=== PATIENT | male | born 1975 | race Hispanic/Latino ===

== ENCOUNTER 2018-09-27 08:16 | Emergency (ER) | payer SELFPAY ==
[~2018-09-27] VITALS: Ht 165.1 cm; Wt 70.0 kg
[~2018-09-27 08:16] MED LIST: CEPHALEXIN500 MG PO; LIBRIUM25 M1 PO; NO HOME MEDS; OCEAN NASAL0.65 %; TRIAMCINOLON0.11 EX; ULTRAM50 M1 PO; ZOFRAN ODT4 MG SL
[2018-09-27] MEDS ORDERED: TORADOL PO (08:40)
[2018-09-27] MEDS ORDERED: AUGMENTIN500TAB PO (08:40)
[2018-09-27 09:38] VITALS: BP 124/65
== END 2018-09-27 09:51 | disposition home or self-care (01) | DRG 605 ==
LOC: ED 08:16
DX: S51.851A Open bite of right forearm, initial encounter (principal); W54.0XXA Bitten by dog, initial encounter; Y92.009 Unspecified place in unspecified non-institutional (private) residence as the place of occurrence of the external cause

== ENCOUNTER 2020-02-09 09:12 | Emergency (ER) | payer SELFPAY ==
[~2020-02-09] VITALS: Ht 165.1 cm; Wt 56.8 kg
[~2020-02-09 09:12] MED LIST changes: +AUGMENTIN500TAB PO; +TORADOL PO
[2020-02-09 10:10] VITALS: BP 122/79
== END 2020-02-09 10:10 | disposition home or self-care (01) | DRG 607 ==
LOC: EDBD 09:12 → ED 09:12
PROC: 0HQ1XZZ Repair Face Skin, External Approach (ICD-10-PCS; principal; 2020-02-09)
DX: L98.8 Other specified disorders of the skin and subcutaneous tissue (principal)

== ENCOUNTER 2020-02-16 22:21 | Emergency (ER) | payer SELFPAY ==
[~2020-02-16] VITALS: Ht 152.4 cm; Wt 67.0 kg
[2020-02-17 04:47] VITALS: BP 111/68
== END 2020-02-16 23:30 | disposition home or self-care (01) | DRG 607 ==
LOC: ED 22:21
DX: L98.9 Disorder of the skin and subcutaneous tissue, unspecified (principal)

== ENCOUNTER 2022-10-08 08:01 | Emergency (ER) | payer SELFPAY ==
[~2022-10-08] VITALS: Ht 152.4 cm; Wt 56.6 kg
[2022-10-08 08:13] VITALS: BP 122/75
[2022-10-08 08:30] VITALS: BP 125/84
[2022-10-08] MEDS ORDERED: CEPHALEXIN500 MG PO (08:46)
[2022-10-08 09:29] VITALS: BP 125/84
== END 2022-10-08 09:33 | disposition home or self-care (01) | DRG 607 ==
LOC: ED 08:01
PROC: 0H9NXZZ Drainage of Left Foot Skin, External Approach (ICD-10-PCS; principal; 2022-10-08)
DX: S90.822A Blister (nonthermal), left foot, initial encounter (principal)

== ENCOUNTER 2023-01-07 05:43 | Emergency (ER) | payer SELFPAY ==
[~2023-01-07] VITALS: Ht 157.5 cm; Wt 52.2 kg
[2023-01-07 05:57] VITALS: BP 137/88
[2023-01-07 06:00] VITALS: BP 130/87
[2023-01-07 06:45] VITALS: BP 135/85
[2023-01-07 06:47] VITALS: BP 135/85
== END 2023-01-07 06:51 | disposition home or self-care (01) | DRG 607 ==
LOC: ED 05:43
DX: S90.822A Blister (nonthermal), left foot, initial encounter (principal); X58.XXXA Exposure to other specified factors, initial encounter

== ENCOUNTER 2023-01-10 07:05 | Emergency (ER) | payer SELFPAY ==
[~2023-01-10] VITALS: Ht 157.5 cm; Wt 49.8 kg
[2023-01-10 07:25] VITALS: BP 150/100
[2023-01-10 07:26] VITALS: BP 137/84
[2023-01-10 07:30] VITALS: BP 146/86
[2023-01-10] MEDS ORDERED: LAMISIL AT1 % TOP (07:32)
[2023-01-10 07:42] VITALS: BP 144/105
[2023-01-10 07:43] VITALS: BP 143/92
[2023-01-10 07:47] VITALS: BP 143/92
== END 2023-01-10 07:47 | disposition home or self-care (01) | DRG 607 ==
LOC: ED 07:05
DX: S90.822A Blister (nonthermal), left foot, initial encounter (principal); B35.3 Tinea pedis; X58.XXXA Exposure to other specified factors, initial encounter

== ENCOUNTER 2023-01-21 06:23 | Emergency (ER) | payer SELFPAY ==
[~2023-01-21] VITALS: Ht 157.5 cm; Wt 68.0 kg
[~2023-01-21 06:23] MED LIST changes: +LAMISIL AT1 % TOP
[2023-01-21 07:56] LABS: BASO% 1.1 % (0-3); EOS% 4.2 % (0-8); HEMATOCRIT 34.5 % (39.0-50.0); HEMOGLOBIN 11.6 g/dl (14.0-18.0); IMMATURE GRANULOCYTES 0.1 % (0.0-5.0); LYMPH% 18.2 % (15-41); MEAN CORPUSCULAR HGB 36.9 pG CALC (26.0-32.0); MEAN CORPUSCULAR HGB CONC 33.6 g/dL CAL (32.0-36.0); MONO% 6.9 % (2-13); NEUT# 6.45 thou/uL (1.82-7.42); NEUT% 69.5 % (42-76); RED BLOOD COUNT 3.14 mill/uL (4.70-6.10); RED CELL DISTRI WIDTH 14.4 % (11.5-15.5)
[2023-01-21 08:00] LABS: MEAN CELL VOLUME 109.9 fL CALC (80.0-100.0)
[2023-01-21 08:19] LABS: ALBUMIN 4.1 g/dL (3.2-5.0); ANION GAP 17 (6-22 (CALC)); BILIRUBIN, TOTAL 1.4 mg/dL (0.2-1.3); BUN 9 mg/dL (9-20); BUN/CREATININE RATIO 16 (12-20 (CALC)); CARBON DIOXIDE 25 mmol/l (22-30); CHLORIDE 104 mmol/l (95-108); CREATININE 0.6 mg/dL (0.7-1.3); GFR FOR AFR.AMER. > 60 ML/MIN (>=60 (CALC)); GFR OTHER RACES > 60 ML/MIN (>=60 (CALC)); POTASSIUM 3.6 mmol/l (3.5-5.1); SGOT/AST 192 u/l (17-59); SODIUM 142 mmol/l (137-146); TOTAL PROTEIN 7.6 g/dL (6.3-8.2)
[2023-01-21 08:20] LABS: ALKALINE PHOSPHATASE 409 u/l (38-126)
[2023-01-21] MEDS ORDERED: BACTRIM DS1 TAB PO (08:39)
[2023-01-21] MEDS ORDERED: OMNI-PAC300 MG PO (08:39)
[2023-01-21 08:45] VITALS: BP 122/81
[2023-01-21 08:55] VITALS: BP 122/81
== END 2023-01-21 08:57 | disposition home or self-care (01) | DRG 594 ==
LOC: ED 06:23
PROVIDERS: Family Medicine
DX: L97.429 Non-pressure chronic ulcer of left heel and midfoot with unspecified severity (principal)

== ENCOUNTER 2023-07-27 15:52 | Emergency (ER) | payer SELFPAY ==
[2023-07-27] VITALS (18 sets, daily range): BP systolic 101–129; BP diastolic 52–76
[~2023-07-27] VITALS: Ht 157.5 cm; Wt 52.0 kg
[~2023-07-27 15:52] MED LIST changes: +BACTRIM DS1 TAB PO; +OMEPRAZOLE20 MG PO; +OMNI-PAC300 MG PO; +ZOFRAN4 MG/TAB PO
[2023-07-27 17:28] LABS: BASO% 1.6 % (0-3); EOS% 0.9 % (0-8); IMMATURE GRANULOCYTES 0.2 % (0.0-5.0); LYMPH% 9.8 % (15-41); MEAN CELL VOLUME 109.6 fL CALC (80.0-100.0); MEAN CORPUSCULAR HGB 34.1 pG CALC (26.0-32.0); MEAN CORPUSCULAR HGB CONC 31.1 g/dL CAL (32.0-36.0); NEUT# 5.07 thou/uL (1.82-7.42); NEUT% 78.5 % (42-76); RED BLOOD COUNT 1.67 mill/uL (4.70-6.10); RED CELL DISTRI WIDTH 15.6 % (11.5-15.5)
[2023-07-27 17:38] LABS: HEMOGLOBIN 5.7 g/dl (14.0-18.0)
[2023-07-27 17:39] LABS: HEMATOCRIT 18.3 % (39.0-50.0)
[2023-07-27 17:50] LABS: ALBUMIN 2.7 g/dL (3.2-5.0); ALKALINE PHOSPHATASE 273 u/l (38-126); BUN 17 mg/dL (9-20); BUN/CREATININE RATIO 24 (12-20 (CALC)); CARBON DIOXIDE 22 mmol/l (22-30); CHLORIDE 104 mmol/l (95-108); CREATININE 0.7 mg/dL (0.7-1.3); ETHYL ALCOHOL 0 mg/dl (0-30); GFR FOR AFR.AMER. > 60 ML/MIN (>=60 (CALC)); GFR OTHER RACES > 60 ML/MIN (>=60 (CALC)); LIPASE 349 u/l (23-300); SGOT/AST 95 u/l (17-59); SODIUM 136 mmol/l (137-146)
[2023-07-27 18:00] LABS: ANION GAP 13 (6-22 (CALC)); BILIRUBIN, TOTAL 0.9 mg/dL (0.2-1.3); POTASSIUM 3.3 mmol/l (3.5-5.1)
== END 2023-07-27 19:05 | disposition short-term general hospital (02) | DRG 379 ==
LOC: ED 15:52
PROVIDERS: Family Medicine
PROC: 30233N1 Transfusion of Nonautologous Red Blood Cells into Peripheral Vein, Percutaneous Approach (ICD-10-PCS; principal; 2023-07-27)
PROC: 30233N1 Transfusion of Nonautologous Red Blood Cells into Peripheral Vein, Percutaneous Approach (ICD-10-PCS; 2023-07-27)
DX: K92.0 Hematemesis (principal)
CPT/HCPCS: J2354; P9016; S0164